=== PATIENT | female | born 1995 | race American Indian/Alaskan Native ===

== ENCOUNTER → 2020-10-25 13:12 | Outpatient (CLI) | payer OTHER, SELFPAY ==
--- NOTE | 2020-10-25 13:15 | DI.US.S_ITS ---
PROCEDURE: US OB >= 14 WEEKS FETUS INDICATIONS: ANATOMY SCAN OUTSIDE/PRIOR DATING DATA: Last menstrual period (LMP): 06/07/2020 . LMP-based estimated date of delivery (NOHEMI): 03/14/2021 . First dating scan (date and location): 10/25/2020 . Estimated date of delivery (NOHEMI) from first dating scan: 03/12/2021 . TECHNIQUE: Real-time scanning was performed of the fetus, with image documentation and biometric measurements. Endovaginal scanning: No COMPARISON: None. FINDINGS: General: A single living intrauterine gestation is present. Presentation: Variable. Placenta: Placental position is posterior , without previa. Amniotic fluid index: 13.7 cm, normal range is 5-24 cm. heart rate: 147 beats per minute. Maternal cervical canal: 3.8 cm long. Normal lower limit is 2.5 cm. biometrics: Biparietal diameter: 20 weeks 2 days Head circumference: 19 weeks 6 days Abdominal circumference: 20 weeks 3 days Femur length: 20 weeks 2 days Estimated gestational age from initial scan: not applicable. Composite gestational age from present scan: 20 weeks 2 days Estimated weight and percentile: 346 g; 64th percentile Measurement variability for biometric dating: +/- 7 days from 14 weeks to 15 weeks 6 days gestation, +/- 10 days from 16 weeks to 21 weeks 6 days gestation, +/- 2 weeks from 22 weeks to 27 weeks 6 days gestation, +/- 3 weeks for 28 weeks gestation or later. weight reference: 4500 g or EFW >90/95% is considered macrosomia or large for gestational age. EFW <10% is small for gestational age. EFW 5% or less is considered intra-uterine growth restriction. Anatomic survey: Neuro: Ventricles are non-dilated at less than 10 mm. Cisterna magna is normal at 3-11 mm. Cerebellum is normal in size and morphology. Nuchal skin fold: Normal at less than 6 mm between 14-21 weeks gestational age. Face: Nose and lips, facial profile are normal. Spine: No evidence for spina bifida. Heart: 4-chambered heart is present, with normal ventricular outflow tracts. Diaphragm: Diaphragm is intact. Stomach: Left-sided stomach is present. Kidneys: No hydronephrosis. Normal is less than 5 mm in 2nd trimester, less than 7 mm in 3rd trimester. Cord: 3-vessel cord has orthotopic insertion. Bladder: Normal in size. Extremities: All 4 extremities identified. IMPRESSION: 1. 20 week 2 day single living IUP corresponding to ultrasound NOHEMI of 03/12/2021. Normal anatomic survey. Dictated by: Jono Hackett [facility] Interpreted: Vera Allen MD on 10/25/2020 at 16:59 Transcribed by: SAMI on 10/25/2020 at 17:01 Approved by: Vera Allen M.D. on 10/26/2020 at 16:20
== END ==
PROVIDERS: PCP Family Medicine; Referring Provider Nurse Practitioner Obstetrics & Gynecology; Visit Provider Nurse Practitioner Obstetrics & Gynecology
DX: Z34.92 Encounter for supervision of normal pregnancy, unspecified, second trimester (principal); Z3A.20 20 weeks gestation of pregnancy
CPT/HCPCS: 76811

== ENCOUNTER → 2020-12-07 07:24 | Outpatient (CLI) | payer OTHER, SELFPAY ==
[2020-12-07 08:31] LABS: Hematocrit 36.4 % (36-46); Hemoglobin 12.3 g/dL (12.0-16.0); Mean Corpuscular HGB Conc 33.7 % (30-36); Mean Corpuscular Hemoglobin 30.6 PG (26-34); Mean Corpuscular Volume 90.8 fL (80-100); Platelet Count 244 X10^3/uL (150-400); Red Blood Cell Count 4.02 X10^6/uL (4.0-5.2); Red Cell Distribution Width 13.8 % (11.6-14.8); White Blood Cell Count 11.9 X10^3/uL (4.5-11.0)
[2020-12-07 09:08] LABS: Glucose Fasting 73 mg/dL (70-100)
[2020-12-07 09:57] LABS: Glucose Tol Interpretation INTERPRETATION
[2020-12-07 10:51] LABS: Glucose 1 Hour 82 mg/dL (70-170)
[2020-12-07 11:34] LABS: Glucose 2 Hour 110 mg/dL (70-140)
== END ==
PROVIDERS: PCP Family Medicine; Referring Provider Nurse Practitioner Obstetrics & Gynecology; Visit Provider Nurse Practitioner Obstetrics & Gynecology
DX: Z34.90 Encounter for supervision of normal pregnancy, unspecified, unspecified trimester (principal); Z13.1 Encounter for screening for diabetes mellitus; Z3A.26 26 weeks gestation of pregnancy
CPT/HCPCS: 36415; 82951; 82952; 85027

== ENCOUNTER → 2021-02-23 20:17 | Outpatient (ROUT) | payer OTHER, SELFPAY | PROVIDERS: PCP Family Medicine; Visit Provider Nurse Practitioner Obstetrics & Gynecology | DX: Z34.90 Encounter for supervision of normal pregnancy, unspecified, unspecified trimester (principal); Z36.85 Encounter for antenatal screening for Streptococcus B; Z3A.36 36 weeks gestation of pregnancy | CPT/HCPCS: 87081 ==

== ENCOUNTER 2021-03-17 11:50 | Inpatient (IN) | payer OTHER, SELFPAY ==
--- NOTE | 2021-03-17 12:07 | PM.OBTRLD ---
Visit Information Visit Information Date of evaluation: 03/17/21 Primary OB Provider: Bess Dixon On-call OB Provider: Bess Dixon Reason for Evaluation: Yes rule out labor Comments/Additional reasons for admission: 26YO @ [id number] here for evaluation of labor. Contractions started around 0100 and have steadily progressed in frequency and intensity with small spotting noticed this morning. Now breathing through regular contractions every 3-4 minutes. No continued vaginal bleeding and no leaking of fluid. Uncomplicated care with CNM. Vital Signs Vital Signs: BP 119/81mmHg, HR 69bpm, T 36.4C Temporal PFSH Medical History (Updated 03/17/21 @ 12:48 by Bess Dixon CNM) Arthritis Asthma Surgical History (Updated 03/17/21 @ 12:44 by Bess Dioxn CNM) H/O oral surgery Social History marital status: unmarried,living together household members: significant other lives independently: Yes education level: college occupational status: employed current occupational exposures/hazards: No Smoking Status: Never smoker Review of Systems Review of Systems ROS: Yes All systems reviewed with the patient and are negative except as otherwise documented Exam Vital Signs (past 8 hours): see above Presentation: vertex Evaluation Evaluation Baseline heart rate: 130 Variability: Moderate (11-25) monitor accelerations: Present Monitor Decelerations: Absent Contraction Frequency (minutes): 3 Uterine Contraction Intensity: Moderate Category of Tracing: 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 TENs unit applied with instructions for use. Recommend 2 hour walk and return. Anticipate labor admission upon return.
[2021-03-17 14:00] LABS: COVID-19 CEPHEID PCR (VTM/NP) Negative (Negative)
--- NOTE | 2021-03-17 14:49 | P.HPOB_ITS ---
OB HPI Date/Time Date of admission: 03/17/21 Date Patient Seen: 03/17/21 Time Patient Seen: 14:52 History of Present Condition Chief complaint: Narrative: Jairo Baez is a 26 year old female @ 40wks 3days by LMP and 8wk US who presents for evaluation of labor. Contractions started at 0100 and have steadily increased in frequency and intensity. Now breathing through stron, regular contractions. Lots of FM. Small spotting. No LOF. Uncomplicated care w/ CNM. Desires low intervention . , Joe, and her mother are present and supportive. History of Present care: good care, initiated at week # (8), number of visits (11) and pounds weight gain (42) Dating criteria: LMP confirmed by 1st trimester US Ultrasounds: normal mid trimester US Obstetrical complications: none Medical complications: none Preadmission Labs Blood type: O (+) positive -: Antibody screen: negative, GBS status: negative, HBsAG: negative, HIV: ne gative and RPR/VDLR: negative -: Rubella: immune and Varicella: immune HCT: 36.4 HCAB: negative Narrative: 2hr gtt: 73/82/110 Evaluation Evaluation Baseline heart rate: 135 Variability: Moderate (11-25) monitor accelerations: Present Monitor Decelerations: Absent Contraction Frequency (minutes): 4 Uterine Contraction Intensity: Strong/Firm Status: Category l Cervical dilation (cm): 4 Cervical effacement (%): 80 station: -2 PFS Medical History Arthritis Asthma Surgical History H/O oral surgery Social History marital status: unmarried,living together household members: significant other lives independently: Yes education level: college occupational status: employed current occupational exposures/hazards: No Smoking Status: Never smoker Meds Home Medications and Allergies Home Medications Medication Instructions Recorded Confirmed Type vits no.60-ferrous 1 tab 03/17/21 History fumarate 27 mg iron-folic acid 1 mg tablet Allergies Allergy/AdvReac Type Severity Reaction Status Date / Time No Known Drug Allergies Allergy Unverified 03/17/21 15:41 Review of Systems Review of Systems ROS: Yes All systems reviewed with the patient and are negative except as o therwise documented Exam Vital Signs (past 8 hours): BP 126/84 HR 90bpm, T 36.6C Temporal Resp Effort & Inspection: normal respiratory effort Auscultation: clear to auscultation bilaterally Cardio Rate: regular rate Rhythm: regular rhythm Heart Sounds: S1 normal and S2 normal Presentation: vertex Objective Labs Result Diagrams: 03/17/21 15:43 Labs: Laboratory Results - last 24 hr 03/17/21 12:15 SARS-CoV-2 (PCR) Negative Assessment and Plan Assessment and Plan Assessment and Plan narrative: A: Term [place] Active Labor No indication for GBS prophylaxis Cat I FHR P: Adnit, routine orders. May switch to intermittent auscultation. Labor support, PRN. Reassess in 4 hours or sooner, PRN.
[2021-03-17 15:50] LABS: Add Manual Diff / Slide Review NO; Basophils Absolute Auto 0 /uL (0-100); Basophils Percent Auto 0.3 % (0-2); Eosinophils Absolute Auto 0 /uL (0-450); Hematocrit 42.1 % (36-46); Hemoglobin 13.9 g/dL (12.0-16.0); Lymphocytes Absolute Auto 1600 /uL (1100-4500); Mean Corpuscular HGB Conc 32.9 % (30-36); Mean Corpuscular Hemoglobin 29.2 PG (26-34); Mean Corpuscular Volume 88.8 fL (80-100); Monocytes Absolute Auto 700 /uL (0-900); Monocytes Percent Auto 4.4 % (3-14); Neutrophils Absolute Auto 14000 /uL (1500-7000); Neutrophils Percent Auto 85.3 % (50-75); Platelet Count 248 X10^3/uL (150-400); Red Blood Cell Count 4.74 X10^6/uL (4.0-5.2); Red Cell Distribution Width 13.5 % (11.6-14.8); White Blood Cell Count 16.5 X10^3/uL (4.5-11.0)
[2021-03-17 16:25] VITALS: BP 119/81
--- NOTE | 2021-03-17 21:08 | PM.OBPNLAB ---
Date/Time Date Patient Seen: 03/17/21 Time Patient Seen: 20:50 Pain Control Pain control: tolerating well Comments: Has been laboring well in mostly upright positions with a lot of movement. Coping well. Began to feel a spontaneous urge to push and continued to do so without feeling much progress. VS: BP 135/81mmHg, HR 86bpm, T 36.8C Pelvic Exam Dilation (cm): 8 Effacement (%): 100 station: +1 Amniotic membrane status: Leaking (clear fluid) Contractions Contractions on admission: regular Pitocin rate (mU/min): 0 Contraction frequency (min): 2 Contraction duration (min): 1 Contraction pattern: Regular Contraction intensity: Strong/Firm Status status: Category l Heart Rate Baseline: 125 Comments: FHR remains reassuring by intermittent auscultation Assessment and Plan Assessment: active labor Plan: continuous present management Comments: Encouraged her not to push and assisted her to hands and knees to relieve some pressure. Continuous labor support Anticipate NSVB.
--- NOTE | 2021-03-17 22:10 | PM.OBPRVD ---
Labor & Delivery Delivery date: 03/17/21 Intrapartal Events: None Cervical ripening method: none Induction method: none Delivery monitor: external FHT Route of delivery: Episiotomy description: None L&D Laceration Description: Superficial (left perineal) Estimated blood loss (mL): 100 Anesthesia Type: None Narrative: Jairo labored well without augmentation. FHR remained reassuring by intermittent auscultation throughout first and second stage. After being assisted to hands and knees position on the bed, spontaneous urge to push led to NSVB of a vigorous baby boy in PHILLY position with a compoud right hand and single loose nuchal cord. was sommersaulted through the cord and passed through maternal legs to Jairo's arms by CNM and FOB. No additional maneuvers were needed for delivery of the shoulder. Jairo was assisted to semi-trinh's position with her son in her arms. 30 units of pitocin in 500mL LR was started at 250mL/hr for AMTSL. After cessation of pulsation, the cord was double clamped by SNM and cut by FOB. Gentle cord traction and single maternal push led to spontaneous, Schultze delivery of an apparently intact placenta, membranes and 3VC. Fundus was immediately firm and bleeding minimal. Inspection revealed a superficial laceration at the introitus that was hemostatic with no indication for repair. QBL 100mL. Both mother and baby stable and skin to skin as I left the room. [place] Baby 1: gender: Male Presentation: vertex Position: Left Occiput Anterior Placenta delivery description: Spontaneous Cord Vessel Description: 3 Vessels, Nuchal Cord and Loose score (1 min): 9 score (5 min): 9 weight: 3.287 kg Plan for aftercare: Routine care
[2021-03-17] MEDS: KETOROLAC 30 MG/ML VIAL IV (23:05)
[2021-03-18] MEDS: IBUPROFEN 600 MG TABLET PO ×2 (05:11→11:46)
[2021-03-18 10:10] VITALS: BP 134/67; PULSE 75; RESP 16; TEMP 36.8
[2021-03-18] MEDS: DOCUSATE 100 MG CAPSULE PO (11:45)
--- NOTE | 2021-03-18 12:52 | PM.OBDS.1 ---
Discharge Providers Provider Date of admission: 03/17/21 11:50 Discharge Date: 03/18/21 Primary care physician: Thalia Armstrong DO Consults: 03/18/21 22:08 Consult to Electric Train Driver Routine Comment: Discharge provider: Bess Dixon CNM Summary Hospital Course Date Patient Seen: 03/18/21 Time Patient Seen: 12:52 Diagnoses: o80 Hospital Course: Jairo is voiding, ambulating and independently. Tolerating a general diet. Pain is well controlled with PO medication. Bleeding has been minimal with the exception of 1 large clot this morning without recurrence. Joe Smith, is present and supportive. they are both feeling ready for discharge to home this evening. Peripartum Data Delivery Method: Natural Vaginal Laceration Description: Superficial Episiotomy description: None Procedures: o80 complications: none [place] 1: Gender: Male Disposition of : home Discharge Diagnosis (1) Active labor: Status: Acute Problem Details: Early labor (2) Encounter for full-term uncomplicated delivery: Start Date: 03/17/21 Start Time: 21:44 Status: Acute Problem Details: routine course Status at Discharge Cognitive/behavioral status at discharge: oriented and calm Functional status at discharge: independent ambulation Overall status at discharge: patient is progressing back to baseline Time Spent with Patient Time attestation: Total time spent providing and/or coordinating discharge services: Time spent: Less than 30 minutes Specific discharge activities: teaching Objective Labs Result Diagrams: 03/17/21 15:43 Labs: Laboratory Results - last 24 hr 03/17/21 03/17/21 03/17/21 12:15 15:43 15:43 WBC 16.5 H RBC 4.74 Hgb 13.9 Hct 42.1 MCV 88.8 MCH 29.2 MCHC 32.9 RDW 13.5 Plt Count 248 Neut % (Auto) 85.3 H Lymph % (Auto) 10.0 L [place] % (Auto) 4.4 Eos % (Auto) 0.0 L Baso % (Auto) 0.3 Neut # (Auto) 34841 H Lymph # (Auto) 1600 [place] # (Auto) 700 Eos # (Auto) 0 Baso # (Auto) 0 SARS-CoV-2 (PCR) Negative Blood Type O Positive Antibody Screen Negative Exam Vital Signs (past 8 hours): - 03/18/21 10:10 Temperature 98.2 F Pulse Rate 75 Respiratory Rate 16 Blood Pressure 134/67 Other: Fundus firm @ umbilicus. Lochia light. Perineu intact. Discharge Plan Discharge Plan Patient Disposition: Home Discharge orders & Medications Prescriptions: New ibuprofen 600 mg Tablet 600 mg PO Q6HR PRN (Reason: Pain, Mild (1-3)) 14 Days Qty: 60 RF: 0 Continued vit 60-iron fum-folic 27 mg iron- 1 mg Tablet 1 tab RF: 0 Follow up/Referrals: Bess Dixon CNM [Advanced Secretary Bookkeeper] - (Follow up by telehealth on 03/31/21 at 9:40 am. Follow up in office on 04/25/21 at 11:00 am. ) Thalia Armstrong DO [Primary Care Provider] - Diet/Activity/Treatments Diet: Diet as Tolerated and Regular Activity: pelvic rest x 6 weeks Skin/Wound/Dressing Care Report to your healthcare provider any signs of infection, such as:: chills, fever, increased pain, unusual drainage and unusual redness Visit Report/Discharge Packet Instructions: Depression Stand Alone Forms: Discharge: Care Discharge Data Primary Care Provider: Thalia Armstrong
== END 2021-03-18 17:34 | disposition home or self-care (01) | DRG 807 ==
PROVIDERS: Admitting Provider Nurse Practitioner Obstetrics & Gynecology; PCP Family Medicine; Referring Provider Nurse Practitioner Obstetrics & Gynecology; Visit Provider Nurse Practitioner Obstetrics & Gynecology
DX: O80 Encounter for full-term uncomplicated delivery (principal); Z37.0 Single live birth; Z20.822 Contact with and (suspected) exposure to COVID-19; Z3A.40 40 weeks gestation of pregnancy
CPT/HCPCS: 36415; 59050; 85025; 86850; 86900; 86901; U0003; G0379; J1885

== ENCOUNTER 2024-01-07 04:43 | Inpatient (IN) | payer OTHER, SELFPAY ==
[2024-01-07] MEDS: OXYTOCIN 10 UNIT/ML VIAL IM (05:20)
[2024-01-07] MEDS: IBUPROFEN 600 MG TABLET PO ×2 (05:33→11:20)
[2024-01-07] MEDS: ACETAMINOPHEN 325 MG TABLET 650 MG PO ×2 (05:34→11:21)
--- NOTE | 2024-01-07 05:35 | PM.OBHP.1 ---
OB HPI Date/Time Date of admission: 01/07/24 Date Patient Seen: 01/07/24 Time Patient Seen: 04:40 History of Present Condition Chief complaint: Labor : 3 Para: 2 Estimated Date of Delivery: 01/16/24 Estimated Gestational Age (weeks): 38.5 Narrative: Jairo Arroyo is a 28 year old female at 38 weeks 5 days by sure LMP concordant with 9-week ultrasound. Rae began having contractions yesterday afternoon that increased in intensity overnight. She called CNM at 0413 to notify that she was coming in to the hospital for labor. She called back at 0438 to notify that baby had been born in the car at [address] hospital and that they were pulling into the ED parking lot. CNM met Rae and Joe at the ED entrance with a wheelchair. Baby was pink, not crying, and well-appearing. There was minimal blood loss noted in the car. Her care with CN was uncomplicated. She planned an unmedicated , consented to IV and AMTSL, support persons included her and mom. History of Present care: good care, initiated at week # (9), number of visits (9) and pounds weight gain (38) Dating criteria: LMP confirmed by 1st trimester US Ultrasounds: normal 1st trimester US and normal mid trimester US Obstetrical complications: none Medical complications: none Preadmission Labs Blood type: O (+) positive -: Antibody screen: negative, Cystic fibrosis screen: unknown (Declined), GBS status: negative, HBsAG: negative, HIV: negative, HSV 1: unknown (Not screened), HSV 2: unknown (Not screened) and RPR/VDLR: negative -: Chlamydia screen: not detected and Gonorrhea screen: not detected -: Rubella: immune and Varicella: immune HCT: 35.6 HCAB: negative PAP: Normal Cell-free DNA: MsAFP Negative 1 hr GTT: 101 Prior (ies) History: 07/2012: TAB; 03/17/24: NSVB @ [id number], 3287gram, male, no complications PFSH Medical History Arthritis Asthma Surgical History H/O oral surgery Social History marital status: unmarried,living together household members: significant other lives independently: Yes education level: college occupational status: employed current occupational exposures/hazards: No Smoking Status: Never smoker Meds Home Medications and Allergies Home Medications Medication Instructions Recorded Confirmed Type vits no.60-ferrous 1 tab 03/17/21 History fumarate 27 mg iron-folic acid 1 mg tablet Allergies Allergy/AdvReac Type Severity Reaction Status Date / Time No Known Drug Allergies Allergy Unverified 03/17/21 15:41 Review of Systems Review of Systems ROS: Yes All systems reviewed with the patient and are negative except as otherwise documented OB Exam Vital signs Blood Pressure: 128/77 Pulse Rate: 63 Temperature: 97.7 F Resp Effort & Inspection: normal respiratory effort and able to speak in complete sentences Auscultation: clear to auscultation bilaterally Cardio Rate: regular rate Rhythm: regular rhythm Heart Sounds: S1 normal and S2 normal Other: Rae was transported to L&D and once in bed the 3 vessel cord was no longer pulsing it was doubly clamped and cut by FOB. Cord blood collected and sent. Fundal massage and uterine support with gentle cord traction applied and placenta delivered spontaneously and intact. IM pitocin given for AMTSL. QBL 449 ml. Perineum and vagina inspected and first degree labial was repaired with 3-0 chromic to achieve hemostasis and approximation. Baby and mother in stable condition. Assessment and Plan Assessment and Plan Assessment and Plan narrative: Assessment: NSVB First degree laceration GBS negative Plan: Routine care Time-Based Coding :: [TOTAL MINUTES] spent with patient and on the chart (including review of chart, obtaining history, exam, reviewing outside data, placing orders, documenting exam and treatment plan, and counseling patient) on [DATE].
[2024-01-07 06:41] VITALS: BP 128/77; PULSE 63; TEMP 36.5
[2024-01-07 07:44] VITALS: BP 128/77
--- NOTE | 2024-01-07 11:41 | PM.OBDS.1 ---
Discharge Providers Provider Date of admission: 01/07/24 04:43 Discharge Date: 01/07/24 Primary care physician: Thalia Flynn DO Consults: 01/08/24 05:01 Consult to Glove Sewer Routine Comment: Discharge provider: Cher Garsia CNM, ARNP Summary Hospital Course Date Patient Seen: 01/07/24 Time Patient Seen: 11:43 Diagnoses: Z34.03, O80, O70.1 Hospital Course: Arrived with baby in arms after delivering on the way to the hospital. Bloodloss at hospital approx 450 mL, but more in car, so anticipated EBL >500 mL. Mom and baby doing well, placenta delivered spontaneously. Small labial laceration repaired with figure of 8. Normal course. . Peripartum Data Delivery Method: Natural Vaginal Laceration Description: Periurethral - 1st Degree Procedures: Laceration repair. 1: Gender: Female Disposition of : home Status at Discharge Cognitive/behavioral status at discharge: at baseline, oriented Functional status at discharge: independent ambulation Overall status at discharge: patient is progressing back to baseline Time Spent with Patient Time attestation: Total time spent providing and/or coordinating discharge services: Specific discharge activities: teaching Objective Labs 01/07/24 11:45 Exam Vital Signs (past 8 hours): - 01/07/24 06:41 01/07/24 07:44 Temperature 97.7 F Pulse Rate 63 Blood Pressure 128/77 128/77 Other: Fundus firm at U, midline. Lochia scant Perineum intact with minimal edema Discharge Plan Discharge Plan Patient Disposition: Home Discharge orders & Medications Prescriptions: Continued vit 60-iron fum-folic 27 mg iron- 1 mg Tablet 1 tab DAILY Follow up/Referrals: Cher Garsia CNM, ARNP [Advanced Adjunct Professor Of Law] - 2 Weeks (2 and 6 week visits as scheduled; patient has information in e-mail) Diet/Activity/Treatments Diet: Diet as Tolerated and Regular Diet comment: Increase fiber and fluid for healing and healthy stool Activity: Low-gonsales for 2 weeks Cold/Heat Therapy: as needed Skin/Wound/Dressing Care Report to your healthcare provider any signs of infection, such as:: chills, fever, increased pain, unusual drainage and unusual redness Visit Report/Discharge Packet Stand Alone Forms: Discharge: Care, Patient Portal/API, Stroke Signs & Symptoms Discharge Data Primary Care Provider: Thalia Flynn
[2024-01-07 12:06] LABS: Add Manual Diff / Slide Review NO; Basophils Absolute Auto 0 /uL (0-100); Basophils Percent Auto 0.2 % (0-2); Eosinophils Absolute Auto 0 /uL (0-450); Hematocrit 36.7 % (36-46); Hemoglobin 12.4 g/dL (12.0-16.0); Lymphocytes Absolute Auto 2000 /uL (1100-4500); Lymphocytes Percent Auto 13.1 % (25-40); Mean Corpuscular HGB Conc 33.8 % (30-36); Mean Corpuscular Hemoglobin 30.4 PG (26-34); Mean Corpuscular Volume 89.9 fL (80-100); Monocytes Absolute Auto 900 /uL (0-900); Monocytes Percent Auto 6.1 % (3-14); Neutrophils Absolute Auto 12500 /uL (1500-7000); Neutrophils Percent Auto 80.6 % (50-75); Platelet Count 241 X10^3/uL (150-400); Red Blood Cell Count 4.09 X10^6/uL (4.0-5.2); Red Cell Distribution Width 13.6 % (11.6-14.8); White Blood Cell Count 15.5 X10^3/uL (4.5-11.0)
== END 2024-01-07 13:25 | disposition home or self-care (01) | DRG 776 ==
PROVIDERS: Admitting Provider Nurse Practitioner Obstetrics & Gynecology; PCP Family Medicine; Referring Provider Nurse Practitioner Obstetrics & Gynecology; Visit Provider Nurse Practitioner Obstetrics & Gynecology
DX: Z39.0 Encounter for care and examination of mother immediately after delivery (principal); O70.0 First degree perineal laceration during delivery; Z3A.39 39 weeks gestation of pregnancy
CPT/HCPCS: 85025; G0379; J2590